=== PATIENT | male | born 1985 | race Caucasian/White ===

== ENCOUNTER 2017-01-18 09:04 | Emergency (ER) | payer MEDICAID, OTHER ==
[2017-01-18 09:20] VITALS: BP 122/76; PULSE 75; RESP 16; TEMP 97.3; O2SAT 100
[2017-01-18] MEDS ORDERED: Naproxen 550 mg Tab PO STA (09:41)
[2017-01-18] MEDS ORDERED: Naproxen 550 mg Tab PO ONE (09:45)
--- NOTE | 2017-01-18 09:50 | RAD ---
PROCEDURE: Radiographs of the Left Shoulder HISTORY: Pain x 3 months COMPARISON: No prior. FINDINGS: BONES: Normal. No fracture. JOINTS: Normal. Glenohumeral and acromioclavicular joints preserved. No osteoarthritis. SOFT TISSUES: Normal. OTHER FINDINGS: None. IMPRESSION: Normal radiographs of the left shoulder.
--- NOTE | 2017-01-18 10:05 | C.PDOC ---
History Of Present Illness Pt c/o left shoulder pain. Time Seen by Provider: 01/18/17 09:31 Chief Complaint (Nursing): Upper Extremity Problem/Injury History Per: Patient Onset/Duration Of Symptoms: Days (about 3 months) Current Symptoms Are (Timing): Still Present Quality: "Pain" Severity: Moderate Exacerbating Factor(s): Strenuous Use Of Affected Area, Movement Additional History Per: Prior Records Past Medical History Reviewed: Historical Data, Nursing Documentation, Vital Signs Vital Signs: Last Vital Signs Temp 97.3 F L 01/18/17 09:13 Pulse 75 01/18/17 09:13 Resp 16 01/18/17 09:13 BP 122/76 01/18/17 09:13 Pulse Ox 100 01/18/17 10:05 - Medical History PMH: No Chronic Diseases Surgical History: No Surg Hx - [facility] Procedures INJECT/INFUSE NEC (11/20/13) Family History: States: Unknown Family Hx - Social History Hx Tobacco Use: No Hx Alcohol Use: Yes Hx Substance Use: No - Immunization History Hx Tetanus Toxoid Vaccination: No Hx Influenza Vaccination: No Hx Pneumococcal Vaccination: No Review Of Systems Except As Marked, All Systems Reviewed And Found Negative. Constitutional: Negative for: Fever, Weakness Cardiovascular: Negative for: Chest Pain Respiratory: Negative for: Shortness of Breath Gastrointestinal: Negative for: Vomiting, Abdominal Pain Musculoskeletal: Positive for: Shoulder Pain (left). Negative for: Neck Pain, Back Pain, Hand Pain Skin: Negative for: Rash Neurological: Negative for: Weakness, Numbness Physical Exam - Physical Exam Appears: Non-toxic, No Acute Distress Skin: Normal Color, Warm, Dry, No Rash Head: Atraumatic, Normacephalic Eye(s): bilateral: PERRL, EOMI Neck: Normal ROM, Supple Cardiovascular: Rhythm Regular Respiratory: Normal Breath Sounds, No Accessory Muscle Use Gastrointestinal/Abdominal: Soft, No Tenderness Extremity: Normal ROM (but painful in left shoulder), No Tenderness, Capillary Refill (wnl), No Deformity, No Swelling Extremity: Bilateral: Normal Color And Temperature Pulses: Left Radial: Normal Neurological/Psych: Oriented x3, Normal Motor, Normal Sensation ED Course And Treatment O2 Sat by Pulse Oximetry: 100 Pulse Ox Interpretation: Normal - Other Rad Left shoulder x-rays X-Ray: Viewed By Me, Read By Radiologist Interpretation: IMPRESSION: Normal radiographs of the left shoulder. Reassessment Condition: Improved Disposition Counseled Patient/Family Regarding: Studies Performed, Diagnosis, Need For Followup, Rx Given - Disposition Referrals: [facility] [Outside] Disposition: HOME/ ROUTINE Disposition Time: 10:06 Condition: STABLE Additional Instructions: Follow up in the clinic for further evaluation and treatment. Return to the ER if you develop redness, swelling, weakness, numbness, worsening of symptoms or if you have any other concerns. Prescriptions: Ibuprofen [Motrin Tab] 600 mg PO TID PRN #30 tab PRN Reason: Pain, Moderate (4-7) Instructions: Shoulder Pain (ED) Print Language: ARMENIAN - Clinical Impression Clinical Impression: Left shoulder pain
== END 2017-01-18 10:12 | disposition home or self-care (01) ==
LOC: C.ER 09:04
DX: M25.512 Pain in left shoulder (principal)

== ENCOUNTER 2017-10-04 17:16 | Emergency (ER) | payer MEDICAID, OTHER ==
[2017-10-04 17:33] VITALS: BMI 32.1
[2017-10-04] MEDS ORDERED: Alum-Mag Hydrox-Simethicone Susp (30 mL) PO STA (18:24)
--- NOTE | 2017-10-04 18:28 | C.PDOC ---
History Of Present Illness 32yo male, otherwise well, comes to ER with complaints of abdominal pain with associated diarrhea x 2 days. Patient states the diarrhea is brown/black in color. He states for the past 2 days, he has decreased appetite and has only been able tolerate water PO. He also reports a headache, lower back pain and a subjective fever. Patient states he has been dizzy as well. He does admit to eating "outside food" but denies any nausea, vomiting, known sick contacts. His last normal bowel movement was 5 days ago. Patient denies any chest pain, SOB or palpitations. Time Seen by Provider: 10/04/17 18:05 Chief Complaint (Nursing): Abdominal Pain History Per: Patient History/Exam Limitations: no limitations Onset/Duration Of Symptoms: Days Current Symptoms Are (Timing): Still Present Location Of Pain/Discomfort: Diffuse Quality Of Discomfort: "Pain" Associated Symptoms: Diarrhea, Back Pain. denies: Fever, Chills, Nausea, Vomiting, Chest Pain, Constipation, Urinary Symptoms Additional History Per: Patient Past Medical History Reviewed: Historical Data, Nursing Documentation, Vital Signs Vital Signs: Last Vital Signs Temp 98 F 10/04/17 17:41 Pulse 83 10/04/17 17:41 Resp 20 10/04/17 17:41 BP 113/78 10/04/17 17:41 Pulse Ox 83 L 10/04/17 18:50 - Medical History PMH: No Chronic Diseases Surgical History: No Surg Hx - [facility] Procedures INJECT/INFUSE NEC (11/20/13) Family History: States: Unknown Family Hx - Social History Hx Tobacco Use: No Hx Alcohol Use: Yes Hx Substance Use: No - Immunization History Hx Tetanus Toxoid Vaccination: No Hx Influenza Vaccination: No Hx Pneumococcal Vaccination: No Review Of Systems Except As Marked, All Systems Reviewed And Found Negative. Constitutional: Negative for: Fever, Chills Cardiovascular: Negative for: Chest Pain Respiratory: Negative for: Shortness of Breath Gastrointestinal: Positive for: Abdominal Pain, Diarrhea. Negative for: Nausea , Vomiting, Constipation Genitourinary: Negative for: Dysuria, Frequency, Hematuria Musculoskeletal: Positive for: Back Pain Neurological: Positive for: Headache, Dizziness Physical Exam - Physical Exam Appears: Non-toxic, No Acute Distress Skin: Normal Color, Warm Head: Atraumatic, Normacephalic Eye(s): bilateral: Normal Inspection Oral Mucosa: Moist Neck: Normal ROM, Supple Chest: Symmetrical Cardiovascular: Rhythm Regular Respiratory: Normal Breath Sounds Gastrointestinal/Abdominal: Soft, Tenderness (diffuse, right upper quadrant; - Stanton's), No Guarding, No Rebound Back: Normal Inspection, No CVA Tenderness, No Vertebral Tenderness, No Paraspinal Tenderness Extremity: Normal ROM, No Pedal Edema Neurological/Psych: Oriented x3 ED Course And Treatment O2 Sat by Pulse Oximetry: 83 Progress Note: Patient given Maalox, Motrin and Pepcid. Medical Decision Making Medical Decision Making: crampy belly discomfort, soft stools LOW susp of infectuous diarrhea LOW susp of inflammatory bowel diseases poorly treated viral vs gastroenteritis diet/pepcid, motrin/ maalox given and educated. Disposition Doctor Will See Patient In The: Office Counseled Patient/Family Regarding: Studies Performed, Diagnosis - Disposition Referrals: [facility] [Outside] [facility] [Outside] [facility] [Outside] Disposition: HOME/ ROUTINE Disposition Time: 18:50 Condition: GOOD Additional Instructions: Dieta blanda de BRAT: Bnanas, Arroz canela, manzana, kaye corwin NADA frito! Muchos liquidos, Gatorade Ibuprofeno/Advil 400-600 mg cada 6 horas nick necessario pepcid 20 mg cada 12 horas (9AM y 9PM) por 1 semana- se baja el acidez del estomago Maalox 30 cc (chantale cucharada) 5 veces al calin por 3 toth, lluego nick necessario. Sigue en la [facility] (gratis) nick necessario Instructions: Diarrhea in Adolescents and Adults Forms: [facility] (Gibraltarian) Print Language: UPPER SORBIAN - Clinical Impression Clinical Impression: Diarrhea - Scribe Statement The provider has reviewed the documentation as recorded by the Bud Webster Provider Attestation: All medical record entries made by the Luis Aibjoseph were at my direction and personally dictated by me. I have reviewed the chart and agree that the record accurately reflects my personal performance of the history, physical exam, medical decision making, and the department course for this patient. I have also personally directed, reviewed, and agree with the discharge instructions and disposition.
[2017-10-04] MEDS ORDERED: Alum-Mag Hydrox-Simethicone Susp (30 mL) ONE (18:34)
[2017-10-04 19:05] VITALS: BP 121/77; PULSE 71; RESP 16; TEMP 98.5; O2SAT 99
== END 2017-10-04 19:10 | disposition home or self-care (01) ==
LOC: C.ER 17:16
DX: R19.7 Diarrhea, unspecified (principal)